=== PATIENT | male | born 1995 | race Caucasian/White ===

== ENCOUNTER 2019-11-09 17:46 | Emergency (ER) | payer BC, OTHER ==
[~2019-11-09 17:46] MED LIST: ACHD5005 PO; CEPH500C PO; CETI1TAB80 PO; CYCL10TA9 PO
[2019-11-09 17:50] VITALS: BP 112/59
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
== END 2019-11-09 18:40 | disposition home or self-care (01) ==
LOC: EDUNIT# 17:46 → ER 17:47
DX: S61.213A Laceration without foreign body of left middle finger without damage to nail, initial encounter (principal); W26.8XXA Contact with other sharp object(s), not elsewhere classified, initial encounter; Y92.59 Other trade areas as the place of occurrence of the external cause; Y99.0 Civilian activity done for income or pay
CPT/HCPCS: 12051; 64450

== ENCOUNTER 2019-11-19 17:25 | Emergency (ER) | payer OTHER ==
[~2019-11-19] VITALS: Ht 195 cm; Wt 92.9 kg
[2019-11-19 17:46] VITALS: BP 126/78
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
== END 2019-11-19 17:46 | disposition home or self-care (01) ==
LOC: EDUNIT# 17:25 → ER 17:27
DX: S61.212D Laceration without foreign body of right middle finger without damage to nail, subsequent encounter (principal); X58.XXXD Exposure to other specified factors, subsequent encounter